=== PATIENT | female | born 1960 | race Caucasian/White ===

== ENCOUNTER 2017-11-26 13:54 | Emergency (ER) | payer OTHER ==
[2017-11-26 14:13] VITALS: BP 115/76
--- NOTE | 2017-11-26 14:38 | UC ---
Complaint Female HPI - HPI Summary HPI Summary: The patient is a 57-year-old female with a 2 day history of dysuria urgency and frequency. Denies any fever or chills, nausea or vomiting. Denies any vaginal discharge or itching. She denies any back pain. She has had a few UTIs in the past. She states she may have had a kidney infection as a young child. She denies any history of kidney stones. She does have some mild suprapubic abdominal pressure. - History Of Current Complaint Chief Complaint: UCGU Stated Complaint: URINARY Time Seen by Provider: 11/26/17 14:21 Hx Obtained From: Patient Onset/Duration: Gradual Onset, Lasting Days Timing: Constant Severity Initially: Mild Severity Currently: None Pain Intensity: 0 Pain Scale Used: 0-10 Numeric Character: Burning Aggravating Factor(s): Urination Associated Signs And Symptoms: Negative: Fever, Back Pain, Vaginal Bleeding/ Discharge, Vaginal Discharge, Nausea, Vomiting(# Of Episodes =), Genital Swelling, Genital Blisters Related Hx: Similar Episode/Dx as: - UTI - Allergies/Home Medications Allergies/Adverse Reactions: Allergies Allergy/AdvReac Type Severity Reaction Status Date / Time Penicillins Allergy Unknown Verified 11/26/17 14:10 Reaction Details Home Medications: Home Medications Ibuprofen TAB* [Motrin TAB* 400 MG] 400 mg PO Q6H PRN 11/26/17 [History Confirmed 11/26/17] Pumpkin Seed Extract/Soy Germ [Azo Bladder Control/Go-Le] 1 cap PO ONCE [History Confirmed 11/26/17] buPROPion TAB* [Wellbutrin TAB*] 100 mg PO BID 11/26/17 [History Confirmed 11/26] PMH/Surg Hx/FS Hx/Imm Hx Previously Healthy: Yes - Surgical History Surgical History: None - Family History Known Family History: Positive: Diabetes Negative: Cardiac Disease, Hypertension - Social History Alcohol Use: Daily Alcohol Amount: wine Substance Use Type: None Smoking Status (MU): Never Smoked Tobacco Review of Systems Constitutional: Negative Skin: Negative Eyes: Negative ENT: Negative Respiratory: Negative Cardiovascular: Negative Gastrointestinal: Negative Genitourinary: Dysuria, Frequency, Urgency Motor: Negative Neurovascular: Negative Musculoskeletal: Negative Neurological: Negative Psychological: Negative Is Patient Immunocompromised?: No All Other Systems Reviewed And Are Negative: Yes Physical Exam Triage Information Reviewed: Yes Appearance: Well-Appearing, No Pain Distress, Well-Nourished Vital Signs: Initial Vital Signs Temp 98.5 F 11/26/17 14:08 Pulse 75 11/26/17 14:08 Resp 15 11/26/17 14:08 BP 115/76 11/26/17 14:08 Pulse Ox 100 11/26/17 14:08 Vital Signs Reviewed: Yes Eyes: Positive: Conjunctiva Clear ENT: Positive: Hearing grossly normal. Negative: Nasal congestion, Nasal drainage, Trismus, Muffled voice, Hoarse voice Neck: Positive: Supple, Nontender, No Lymphadenopathy Respiratory: Positive: Lungs clear, Normal breath sounds, No respiratory distress, No accessory muscle use Cardiovascular: Positive: RRR, No Murmur Musculoskeletal: Positive: ROM Intact, No Edema Neurological: Positive: Alert Psychological Exam: Normal Skin Exam: Normal Complaint Female Dx - Course Course Of Treatment: unable to do urine dip due to AZO - Differential Dx/Diagnosis Provider Diagnoses: Dysuria...suspect UTI Discharge - Sign-Out/Discharge Documenting (check all that apply): Discharge/Admit/Transfer - Discharge Plan Condition: Stable Disposition: HOME Prescriptions: Cephalexin CAP* [Keflex CAP*] 500 mg PO BID #14 cap Patient Education Materials: Urinary Tract Infection in Women (ED) Referrals: Non Staff,Doctor [Primary Care Provider] - Additional Instructions: I suspect you have a UTI A urine culture is pending recheck for new or worsening symptoms call us for culture results if not better in 48-72 hours - Billing Disposition and Condition Condition: STABLE Disposition: Home
--- NOTE | 2017-11-28 20:56 | UC ---
- Progress Note Progress Note: treated with cephalexin for UTI, but culture was negative. Advise that she can stop antibiotic, follow up with PMD for reassessment if still symptomatic Discharge - Sign-Out/Discharge Documenting (check all that apply): Discharge/Admit/Transfer - Discharge Plan Condition: Stable Disposition: HOME Prescriptions: Cephalexin CAP* [Keflex CAP*] 500 mg PO BID #14 cap Patient Education Materials: Urinary Tract Infection in Women (ED) Referrals: Non Staff,Doctor [Primary Care Provider] - Additional Instructions: I suspect you have a UTI A urine culture is pending recheck for new or worsening symptoms call us for culture results if not better in 48-72 hours - Billing Disposition and Condition Condition: STABLE Disposition: Home
== END 2017-11-26 14:37 | disposition home or self-care (01) ==
LOC: UCCORT 13:54
DX: R30.0 Dysuria (principal); Z88.0 Allergy status to penicillin
CPT/HCPCS: 87086; 99202; G0463